=== PATIENT | female | born 1995 ===

== ENCOUNTER 2021-05-27 15:55 | Observation (INO) | payer BC ==
[2021-05-27] MEDS ORDERED: Ondansetron 4 MG/2 ML SDV IVPUSH PRN ×2 (16:22→17:48)
[2021-05-27] MEDS ORDERED: Morphine 2 MG/ML SYRINGE IVPUSH ONE (16:25)
[2021-05-27] MEDS: Lactated Ringers 1,000 ML IV SCH ×2 (16:36→16:54)
[2021-05-27 17:20] LABS: BLOOD UREA NITROGEN,BUN 8 mg/dL (7.0-18.0); CARBON DIOXIDE,CO2 20.9 mmol/L (21.0-32.0); CHLORIDE,CL 102 mmol/L (98-107); GLUCOSE RANDOM 81 mg/dL (74-106); POTASSIUM,K 3.6 mmol/L (3.5-5.1); SODIUM,NA 137 mmol/L (136-145)
[2021-05-27] MEDS ORDERED: Sodium Chloride 0.9% 20 ML SDV IV PRN (17:48)
[2021-05-27] MEDS ORDERED: Sodium Chloride 0.9% 10 ML Syringe FLUSH PRN (17:48)
[2021-05-27] MEDS ORDERED: Butorphanol 1 MG/ML SDV IVPUSH PRN (17:48)
[2021-05-27] MEDS ORDERED: Sodium Chloride 0.9% 2.5 ML Syringe FLUSH PRN (17:48)
[2021-05-27] MEDS ORDERED: Morphine 2 MG/ML SYRINGE IVPUSH PRN (18:00)
[2021-05-27] MEDS ORDERED: Lactated Ringers 1,000 ML IV SCH (18:00)
[2021-05-27] MEDS ORDERED: Acetaminophen 500 MG Tab PO PRN (18:00)
[2021-05-27] MEDS ORDERED: cefTRIAXone 1 GM in Sodium Chloride 0.9% 50 ML IV SCH (18:00)
[2021-05-27] MEDS: Acetaminophen/HYDROcodone 325-5 MG Tab PO PRN ×2 (19:37→23:46)
[2021-05-28] MEDS: Acetaminophen/HYDROcodone 325-5 MG Tab PO PRN ×2 (04:45→10:33)
[2021-05-28 05:57] LABS: BLOOD UREA NITROGEN,BUN 6 mg/dL (7.0-18.0); CARBON DIOXIDE,CO2 25.1 mmol/L (21.0-32.0); CHLORIDE,CL 105 mmol/L (98-107); GLUCOSE RANDOM 84 mg/dL (74-106); POTASSIUM,K 3.7 mmol/L (3.5-5.1); SODIUM,NA 137 mmol/L (136-145)
[2021-05-28] MEDS ORDERED: Prenatal Multivitamin with Calcium/Folic Acid/Iron Tab PO SCH (09:00)
== END 2021-05-28 10:30 | disposition home or self-care (01) ==
LOC: MW.OB 15:55 → MW.OBCHECK 15:55 → MW.OB 17:48
PROVIDERS: ADMIT Obstetrics & Gynecology; ATTEND Obstetrics & Gynecology
DX: O99.891 Other specified diseases and conditions complicating pregnancy (principal); O23.42 Unspecified infection of urinary tract in pregnancy, second trimester; N39.0 Urinary tract infection, site not specified
CPT/HCPCS: 36415; 80048; 81001; 85025; 85027; 87086; 96374; 96375; 96376; A9270; G0378; J0595; J0696; J2270; J2405; J7120

== ENCOUNTER 2021-10-31 08:39 | Inpatient (IN) | payer BC ==
[2021-10-31] MEDS ORDERED: Water For Irrigation,Sterile 1,000 ML Container IRR PRN (08:55)
[2021-10-31] MEDS ORDERED: Sodium Chloride 0.9% 10 ML Syringe FLUSH PRN (08:55)
[2021-10-31] MEDS ORDERED: Tranexamic Acid 1,000 MG in Sodium Chloride 0.9% 100 ML IV PRN (08:55)
[2021-10-31] MEDS ORDERED: Methylergonovine 0.2 MG/1 ML Amp IM PRN (08:55)
[2021-10-31] MEDS ORDERED: Lidocaine 1% 50 ML MDV INJECT PRN (08:55)
[2021-10-31] MEDS ORDERED: Ondansetron 4 MG/2 ML SDV IVPUSH PRN (08:55)
[2021-10-31] MEDS ORDERED: Carboprost Tromethamine 250 MCG/1 ML Amp IM PRN (08:55)
[2021-10-31] MEDS ORDERED: Ampicillin 2 GM in Sodium Chloride 0.9% 100 ML IV ONE (08:55)
[2021-10-31] MEDS ORDERED: Sodium Chloride 0.9% 2.5 ML Syringe FLUSH PRN (08:55)
[2021-10-31] MEDS ORDERED: Sodium Chloride 0.9% 20 ML SDV IV PRN (08:55)
[2021-10-31] MEDS ORDERED: Misoprostol 200 MCG Tab PO PRN (08:55)
[2021-10-31] MEDS ORDERED: Oxytocin/0.9 % Sodium Chloride 30 UNIT/500 ML BAG IV SCH (09:00)
[2021-10-31] MEDS: Lactated Ringers 1,000 ML IV SCH ×3 (09:29→19:42)
[2021-10-31] MEDS: Butorphanol 1 MG/ML SDV IVPUSH PRN ×3 (11:05→15:37)
[2021-10-31] MEDS: Ampicillin 1 GM in Sodium Chloride 0.9% 50 ML IV SCH ×3 (12:53→21:28)
[2021-10-31] MEDS ORDERED: ePHEDrine 50 MG/ML SDV IVPUSH PRN (18:21)
[2021-10-31] MEDS ORDERED: Ropivacaine HCl/PF 400 MG in Premix Bag 1 BAG EPIDUR SCH (18:30)
[2021-10-31] MEDS ORDERED: Bupivacaine 0.25% 10 ML SDV ONE (18:33)
[2021-11-01] MEDS ORDERED: oxyCODONE 5 MG Tab PO PRN (00:38)
[2021-11-01] MEDS ORDERED: Benzocaine/Menthol 20%-0.5% Spray 78 GM Cannister TOP PRN (00:38)
[2021-11-01] MEDS ORDERED: Ibuprofen 800 MG Tab PO PRN (00:38)
[2021-11-01] MEDS ORDERED: Lanolin 100% Cream 7 GM Tube TOP PRN (00:38)
[2021-11-01] MEDS ORDERED: Ibuprofen 400 MG Tab PO PRN (00:38)
[2021-11-01] MEDS ORDERED: Acetaminophen 500 MG Tab PO PRN ×2 (00:38)
[2021-11-01] MEDS ORDERED: Bisacodyl 10 MG Supp RECTAL PRN (00:38)
[2021-11-01] MEDS: Witch Hazel Medicated Pads 40/Jar TOP PRN ×2 (02:20→20:21)
[2021-11-01] MEDS: Docusate Sodium 100 MG Cap PO PRN (16:04)
[2021-11-02] MEDS: Docusate Sodium 100 MG Cap PO PRN (06:04)
== END 2021-11-02 13:55 | disposition home or self-care (01) | DRG 768 ==
LOC: MW.OBCHECK 08:39 → MW.OB 08:40 → MW.OBCHECK 08:54 → MW.OB 08:55 → OBSVTOIN 23:51 → INTOOBSV 11-01 00:38 → OBSVTOIN 11-01 00:38 → MW.OB 11-01 04:58
PROVIDERS: ADMIT Obstetrics & Gynecology; ATTEND Obstetrics & Gynecology
PROC: 10D07Z6 Extraction of Products of Conception, Vacuum, Via Natural or Artificial Opening (ICD-10-PCS; principal; 2021-10-31)
PROC: 0DQR0ZZ Repair Anal Sphincter, Open Approach (ICD-10-PCS; 2021-10-31)
PROC: 10907ZC Drainage of Amniotic Fluid, Therapeutic from Products of Conception, Via Natural or Artificial Opening (ICD-10-PCS; 2021-10-31)
PROC: 10907ZC Drainage of Amniotic Fluid, Therapeutic from Products of Conception, Via Natural or Artificial Opening (ICD-10-PCS; 2021-10-31)
PROC: 3E0R3BZ Introduction of Anesthetic Agent into Spinal Canal, Percutaneous Approach (ICD-10-PCS; 2021-10-31)
PROC: 00HU33Z Insertion of Infusion Device into Spinal Canal, Percutaneous Approach (ICD-10-PCS; 2021-10-31)
DX: O48.0 Post-term pregnancy (principal); Z37.0 Single live birth; O70.20 Third degree perineal laceration during delivery, unspecified; Z3A.40 40 weeks gestation of pregnancy; O77.0 Labor and delivery complicated by meconium in amniotic fluid; O99.824 Streptococcus B carrier state complicating childbirth; O76 Abnormality in fetal heart rate and rhythm complicating labor and delivery; Z20.822 Contact with and (suspected) exposure to COVID-19; Z86.16 Personal history of COVID-19
CPT/HCPCS: 36415; 59025; 59409; 82803; 85014; 85018; 85027; 85460; 86592; 86850; 86900; 86901; A9270-GY; J0290; J0595; J2405; J2590; J2790; J2795; J3490; J7120; U0002

== ENCOUNTER 2023-03-21 10:05 | Emergency (ER) | payer BC, OTHER | END 2023-03-21 11:03 | disposition home or self-care (01) | LOC: MW.ED 10:05 | DX: M79.671 Pain in right foot (principal); Z86.16 Personal history of COVID-19 | CPT/HCPCS: 73610-26-RT; 73610-RT; 73630-26-RT; 73630-RT; 99283 ==